=== PATIENT | female | born 1965 | race Caucasian/White ===

== ENCOUNTER 2018-09-19 05:53 | Inpatient (IN) | payer BC ==
[~2018-09-19 05:53] MED LIST: Buffered Lidocaine 1% SYRIN* 1 ML/SYRINGE INTRADERM ONE
[2018-09-19] MEDS ORDERED: Levalbuterol 0.63MG/3ML NEB* UNIT OF USE INH ONE ×2 (06:00→06:16)
[2018-09-19] MEDS ORDERED: Lactated Ringers 1000 ML Bag* 1,000 ML IV SCH (06:00)
[2018-09-19] MEDS ORDERED: Famotidine IV* 10 MG/ML 2 ML (20 mg) IV ONE (06:00)
[2018-09-19] MEDS ORDERED: Heparin VIAL(*) 5000 UNITS/ML VIAL (FIVE THOUSAND) ONE (06:16)
[2018-09-19] MEDS ORDERED: ceFAZolin 1 GM in Dextrose (*) 1 GM/50 ML BAG IVPB ONE (06:17)
[2018-09-19] MEDS ORDERED: Famotidine IV* 10 MG/ML 2 ML (20 mg) ONE (06:17)
[2018-09-19] MEDS ORDERED: ceFAZolin 2 GM PREMIX in ORs 2 GM/50 ML BAG ONE (06:17)
[2018-09-19] MEDS ORDERED: Bupivacaine 0.25% W/EPI* 10 ML SDV ONE ×2 (06:51→07:23)
[2018-09-19] MEDS ORDERED: Ondansetron INJ* 2 MG/ML VIAL ONE (07:07)
[2018-09-19] MEDS ORDERED: fentaNYL* 50 MCG/ML 2 ML VIAL (100 MCG VIAL) ONE ×4 (07:07→11:01)
[2018-09-19] MEDS ORDERED: Propofol* 10 MG/ML 20 ML BTL ONE (07:07)
[2018-09-19] MEDS ORDERED: Lidocaine 2% PF * 5 ML VIAL ONE (07:07)
[2018-09-19] MEDS ORDERED: Rocuronium* 10 MG/ML VIAL ONE (07:07)
[2018-09-19] MEDS ORDERED: Dexamethasone IV* 4 MG/ML 1 ML (4 MG) ONE (07:07)
[2018-09-19] MEDS ORDERED: Midazolam* 1 MG/ML 5 ML VIAL (5 MG) ONE (07:07)
[2018-09-19] MEDS ORDERED: Levalbuterol 0.63MG/3ML NEB* UNIT OF USE INH PRN (08:50)
[2018-09-19] MEDS ORDERED: Naloxone* 0.4 MG/ML 1 ML VIAL IV PRN (08:50)
[2018-09-19] MEDS ORDERED: Ondansetron INJ* 2 MG/ML VIAL IV PRN (08:50)
[2018-09-19] MEDS ORDERED: Ketorolac INJ* 30 MG/ML 1 ML VIAL ONE (09:06)
[2018-09-19] MEDS ORDERED: HYDROmorphone INJ1* 1 MG/ML SYRINGE ONE ×2 (09:27→10:18)
[2018-09-19] MEDS ORDERED: diPHENhydraMINE IV* 50 MG/ML 1 ml VIAL (BENADRYL) SLOW PUSH PRN (09:43)
[2018-09-19] MEDS: fentaNYL* 50 MCG/ML 2 ML VIAL (100 MCG VIAL) IV PRN ×4 (09:59→11:15)
[2018-09-19] MEDS ORDERED: HYDROmorphone INJ1* 1 MG/ML SYRINGE IV SLOW PU PRN (10:20)
[2018-09-19] MEDS ORDERED: Labetalol IV* 5 MG/ML 20 ML VIAL ONE (11:19)
[2018-09-19] MEDS: Heparin VIAL(*) 5000 UNITS/ML VIAL (FIVE THOUSAND) SUBCUT SCH ×2 (13:48→22:17)
[2018-09-19] MEDS: Ondansetron INJ* 2 MG/ML VIAL IV PRN ×2 (15:43→22:16)
[2018-09-19] MEDS ORDERED: Scopolamine 1.5 mg* PATCH ONE (16:46)
[2018-09-19] MEDS: Ketorolac INJ* 30 MG/ML 1 ML VIAL IV PRN ×2 (16:50→23:28)
[2018-09-19] MEDS ORDERED: Scopolamine 1.5 mg* PATCH TRANSDERM SCH (17:00)
[2018-09-19] MEDS ORDERED: hydrALAZINE IV* 20 MG/ML VIAL IV SLOW PU ONE (17:30)
[2018-09-19] MEDS: Mometasone/Formoter 100/5 MDI INH SCH (19:29)
[2018-09-19] MEDS: Lactated Ringers 1000 ML Bag* 1,000 ML IV SCH (20:18)
[2018-09-19] MEDS: HYDROmorphone INJ1* 1 MG/ML SYRINGE IV SLOW PU PRN (20:51)
[2018-09-19] MEDS: Famotidine IV* 10 MG/ML 2 ML (20 mg) IV SLOW PU SCH (20:54)
--- NOTE | 2018-09-20 02:13 | OP ---
DATE OF OPERATION: 09/19/18 - ROOM #353 DATE OF : 67 SURGEON: Ahmet Kennedy MD [employer] ENGINEER: Tammy Doan NP ANESTHESIOLOGIST: Dr. Ware. PRE-OP DIAGNOSES: 1. Clinically severe obesity. 2. Obstructive sleep apnea. 3. Gastroesophageal reflux disease. POST-OP DIAGNOSES: 1. Clinically severe obesity. 2. Obstructive sleep apnea. 3. Gastroesophageal reflux disease. OPERATIVE PROCEDURE: Laparoscopic sleeve gastrectomy. ESTIMATED BLOOD LOSS: Minimal blood loss. FLUIDS: Crystalloid fluid given, see chart. DRAINS: None. SPECIMENS: Portion of stomach. DESCRIPTION OF PROCEDURE: The patient was identified in the preoperative area, she was marked, consent was signed. I discussed the case with her again. She was taken to the operating room and placed on the operating room table in supine position. Preoperative antibiotics were given. Sequential compression devices were placed on bilateral lower extremities. The patient had received subcutaneous heparin. The patient's abdomen was prepped and draped in a standard surgical fashion after general anesthesia was induced and the time-out was performed. Folds of the umbilicus were elevated anteriorly and a Veress needle inserted into the abdominal cavity which was then allowed to insufflate to a pressure of 15 mmHg. The patient tolerated the insufflation well. [place] between the xiphoid and the umbilicus, a 12-mm trocar was inserted just left of midline. Laparoscope was inserted through this and there was no evidence of injury from the trocar insertion or from the Veress needle. This was placed with an Optiview trocar. The Veress needle was removed, and two additional 5-mm ports were placed in the left upper quadrant and one additional 12-mm port in the right upper quadrant. Table was repositioned to a reverse Trendelenburg. Isaiah retractor was inserted through a subxiphoid incision and the liver was retracted anteriorly and to the right. This exposed the gastroesophageal fat pad which was grasped and retracted towards right lower quadrant. Both blunt and sharp dissection were carried out to expose the left deisy. Next, a retrogastric tunnel was made approximately 6 cm proximal to the pylorus along the greater curvature and the vasculature to the greater curvature was taken with a LigaSure right up to the angle of His at the previous dissected area. Posterior attachments were similarly taken until the stomach could be rotated on its axis. We then again measured the site from the pylorus to the dissection area and did additional dissection posteriorly at the antrum. Next, the sleeve stomach was created over a 40-Vietnamese bougie using a 60-mm purple SIMON stapling device with reinforcements, starting on the greater curvature 6 cm from the pylorus and extending it towards the incisura and extending it along hugging the bougie to the proximal stomach. Staple line was intact with no twisting or corkscrewing. Hemostasis excellent. The Isaiah retractor was removed and the liver fell back down on top of the sleeve stomach almost obscuring the whole stomach. The resected portion of the stomach was then placed in an endoscopic retrieval bag and brought out through the right upper quadrant port site. We had to dilate this to remove the specimen in its entirety. This was passed off as specimen. Wound was irrigated at this site and the fascia was reapproximated with 0 Vicryl stitch using a Weck device. The abdomen was allowed to collapse. Trocars were removed under direct vision and all incisions were reapproximated with 4-0 Monocryl subcuticular sutures followed by Steri-Strips and sterile dressing. The patient tolerated the procedure well. [id number]/[facility] #: [id number] [facility]
[2018-09-20] MEDS: HYDROmorphone INJ1* 1 MG/ML SYRINGE IV SLOW PU PRN ×2 (02:24→08:58)
[2018-09-20] MEDS: Lactated Ringers 1000 ML Bag* 1,000 ML IV SCH ×2 (02:27→09:24)
[2018-09-20] MEDS: Ketorolac INJ* 30 MG/ML 1 ML VIAL IV PRN ×3 (05:31→17:30)
[2018-09-20] MEDS: Heparin VIAL(*) 5000 UNITS/ML VIAL (FIVE THOUSAND) SUBCUT SCH ×2 (05:31→14:31)
[2018-09-20] MEDS: Famotidine IV* 10 MG/ML 2 ML (20 mg) IV SLOW PU SCH ×2 (08:34→21:48)
[2018-09-20] MEDS: Mometasone/Formoter 100/5 MDI INH SCH ×2 (08:34→20:20)
--- NOTE | 2018-09-20 10:52 | PN ---
Progress Note - Progress Note Date of Service: 09/20/18 Note: S: POD #1. Some nausea, but only bringing up phlegm. Otherwise doing ok. Pain controlled w/ Dilaudid and Toradol. Ambulating. No flatus. O: Vital Signs - 8 hr 09/20/18 09/20/18 09/20/18 03:42 03:45 07:32 Temperature 99 F 98.5 F Pulse Rate 80 73 Respiratory 18 17 16 Rate Blood Pressure 119/74 124/68 (mmHg) O2 Sat by Pulse 95 95 Oximetry 09/20/18 09/20/18 08:30 08:58 Temperature Pulse Rate Respiratory 16 16 Rate Blood Pressure (mmHg) O2 Sat by Pulse Oximetry Intake and Output Last 24 Hours 09/18/18 09/19/18 09/20/18 09/21/18 06:59 06:59 06:59 06:59 Intake Total 3930 Output Total 1900 750 Balance 2030 -750 Weight 231 lb 3.2 oz Intake: IV Fluids 3930 CEFAZOLIN 3MG 50ML 50 LR 3880 Oral 0 Output: Urine 1900 750 Gen: appears comfortable; NAD Heart: reg Lungs: clear ant Abd: +BS; lap sites ok; soft; mild to moderate incisional tenderness A: s/p lap sleeve gastrectomy, doing well P: UGI pend; likely start watson clears later; resume usual Xarelto
[2018-09-20] MEDS: Ondansetron INJ* 2 MG/ML VIAL IV PRN (11:30)
[2018-09-20] MEDS: D5W 1/2 NS KCl 20 Meq 1000 ML* 1,000 ML IV SCH (17:35)
[2018-09-20] MEDS ORDERED: Rivaroxaban TAB(*) 20 MG TAB PO SCH (18:00)
[2018-09-21] MEDS: Ketorolac INJ* 30 MG/ML 1 ML VIAL IV PRN ×2 (01:28→07:48)
[2018-09-21] MEDS: D5W 1/2 NS KCl 20 Meq 1000 ML* 1,000 ML IV SCH (01:31)
[2018-09-21 07:40] VITALS: BP 163/99
[2018-09-21] MEDS: Famotidine IV* 10 MG/ML 2 ML (20 mg) IV SLOW PU SCH (07:49)
[2018-09-21] MEDS: Mometasone/Formoter 100/5 MDI INH SCH (07:51)
[2018-09-21] MEDS ORDERED: HYDROcodone/ACET. 7.5/325 LIQ* 15 ML UDC PO PRN (08:57)
--- NOTE | 2018-09-21 12:23 | DS ---
CC: Dr. María Elena Maurer; [facility] * DISCHARGE SUMMARY: DATE OF ADMISSION: 09/19/18 DATE OF DISCHARGE: 09/21/18 ATTENDING SURGEON: Dr. Ahmet Kennedy * (DICTATED BY DENISSE MEDEIROS) HOSPITAL COURSE: Please refer to admission history and physical and operative note for details. The patient was taken to the operating room on 09/19/18 and underwent laparoscopic sleeve gastrectomy with Dr. Kennedy. Surgery itself was unremarkable and she has been able to advance to adequate bariatric clear liquids as of the morning of postoperative day 2. Her pain has been well controlled. Physical exam on the morning of discharge; temperature 98.3, blood pressure is ranging from 119 to 163/74 to 99, pulse 60, respirations 16, room air saturation 96%. The patient was seen and examined with Dr. Kennedy. Heart: Regular rate and rhythm. Lungs: Clear to auscultation. Abdomen: Laparoscopic incision sites clean and dry. Outer dressings were removed. Soft with incisional tenderness primarily at the right upper quadrant incision. Lower abdomen is nontender. IMPRESSION: Status post laparoscopic sleeve gastrectomy. PLAN: The patient is discharged to home today in good condition. She resumed her usual Xarelto as of last evening and will continue per her usual regimen as well as her other usual medications. She has an appointment at [facility] next week with Dr. Kennedy. We reviewed instructions regarding diet, wound care and activity. DENISSE MEDEIROS [id number]/[facility] #: [id number] [facility]
[2018-09-22] MEDS ORDERED: Scopolamine PATCH Remove* 1 NOTE MISC PATCH OFF SCH (17:00)
== END 2018-09-21 10:13 | disposition home or self-care (01) | DRG 403 ==
LOC: AA 05:53 → SSU 09:43
PROVIDERS: ADMIT Surgery; ATTEND Surgery
PROC: 0DB64Z3 Excision of Stomach, Percutaneous Endoscopic Approach, Vertical (ICD-10-PCS; principal; 2018-09-19 07:30)
DX: E66.01 Morbid (severe) obesity due to excess calories (principal); Z68.36 Body mass index [BMI] 36.0-36.9, adult; K21.9 Gastro-esophageal reflux disease without esophagitis; J45.909 Unspecified asthma, uncomplicated; G89.29 Other chronic pain; M54.5 Low back pain; E74.39 Other disorders of intestinal carbohydrate absorption; G47.33 Obstructive sleep apnea (adult) (pediatric); Z86.718 Personal history of other venous thrombosis and embolism; Z90.49 Acquired absence of other specified parts of digestive tract; Z98.51 Tubal ligation status; Z87.891 Personal history of nicotine dependence; Z72.89 Other problems related to lifestyle; R11.0 Nausea
CPT/HCPCS: 43775; 74246; 88307; 94640; A9270-GY; J0360; J0690; J1100; J1170; J1644; J1885; J2250; J2405; J2704; J3010

== ENCOUNTER 2018-12-03 09:14 | Emergency (ER) | payer BC ==
[2018-12-03 09:22] VITALS: BP 122/84
--- NOTE | 2018-12-03 09:30 | UC ---
Cardiac HPI - HPI Summary HPI Summary: 53-year-old female presents with complaints of left sided chest wall pain after sustaining a fall last night. Patient states she tripped on a step falling onto a carpeted floor landing on her left side injuring her left breast and chest wall. States did not hit her head or lose consciousness. Reports lateral left chest wall pain with palpation, deep breath, cough. States she is concerned about a possible fractured rib. Patient is on Xarelto. Denies bruising, shortness of breath, hemoptysis, palpitations, diaphoresis, weakness, dizziness, abdominal pain, nausea, or vomiting. - History of Current Complaint Chief Complaint: UCGeneralIllness Stated Complaint: RIB INJURY Time Seen by Provider: 12/03/18 09:24 Hx Obtained From: Patient Hx Last Menstrual Period: 2 weeks ago Pain Intensity: 7 - Allergy/Home Medications Allergies/Adverse Reactions: Allergies Allergy/AdvReac Type Severity Reaction Status Date / Time No Known Drug Allergies Allergy Edema Verified 12/03/18 09:22 ENVIRONMENTAL Allergy Congestion Uncoded 12/03/18 09:22 PMH/Surg Hx/FS Hx/Imm Hx Cardiovascular History: Deep Vein Thrombosis, Other - Mesenteric vein thrombosis Respiratory History: COPD GI/ History: Gastroesophageal Reflux - Surgical History Surgical History: Yes Surgery Procedure, Year, and Place: left ACL - 1997, [facility]. tubal- 2000, [facility]. cholecystectomy - 2002, [facility]. left knee [facility] - 2011. left knee meniscus repair 2012 - Family History Known Family History: Positive: Non-Contributory - Social History Occupation: Employed Full-time Lives: With Family Alcohol Use: Occasionally Alcohol Amount: 5-6 PER WEEK Substance Use Type: None Smoking Status (MU): Current Some Day Smoker Type: Cigarettes Amount Used/How Often: 1pp month Length of Time of Smoking/Using Tobacco: 30 years Have You Smoked in the Last Year: Yes Household Exposure Type: Cigarettes - Immunization History Most Recent Influenza Vaccination: 2013 Most Recent Tetanus Shot: remote Most Recent Pneumonia Vaccination: never Review of Systems All Other Systems Reviewed And Are Negative: Yes Constitutional: Negative: Fever, Chills Skin: Negative: Bruising Respiratory: Positive: Other - Chest wall pain. Negative: Shortness Of Breath, Cough Cardiovascular: Positive: Negative Gastrointestinal: Negative: Abdominal Pain, Vomiting, Nausea Genitourinary: Positive: Negative Musculoskeletal: Positive: Negative Neurological: Positive: Negative Is Patient Immunocompromised?: No Physical Exam - Summary Physical Exam Summary: GENERAL APPEARANCE: Well developed, obese, alert and cooperative adult female who appears to be in no acute distress. HEAD: Atraumatic. Normocephalic. NECK: Neck supple, non-tender. CARDIAC: Normal S1 and S2. No S3, S4 or murmurs. Rhythm is regular. There is no peripheral edema, cyanosis or pallor. Extremities are warm and well perfused. Capillary refill is less than 2 seconds. Peripheral pulses intact. LUNGS: Clear to auscultation without rales, rhonchi, wheezing or diminished breath sounds. BREAST/CHEST: Left breast soft and non-tender without ecchymosis. Tenderness to the mid lateral chest wall with palpation without ecchymosis or crepitus. ABDOMEN: Positive bowel sounds. Soft, nondistended, nontender. No guarding or rebound. No masses or hepatosplenomegally. MUSKULOSKELETAL: ROM intact to all extremities. No joint erythema or tenderness. Normal muscular development. Normal gait. BACK: Examination of the spine no spinal deformity or tenderness, decreased range of motion or muscular spasm. EXTREMITIES: No significant deformity or joint abnormality. No edema. SKIN: Skin normal color, texture and turgor with no lesions or eruptions. Triage Information Reviewed: Yes Vital Signs: Initial Vital Signs Temp 98.4 F 12/03/18 09:18 Pulse 66 12/03/18 09:18 Resp 16 12/03/18 09:18 BP 122/84 12/03/18 09:18 Pulse Ox 98 12/03/18 09:18 Vital Signs Reviewed: Yes Diagnostics - Radiology No standard instances Radiology Interpretation Completed By: Radiologist - Order Information: RIBS LT UNI W/PA CH MIN 3 VWS Accession Number: [id number] CPT: 23653 HISTORY: chest pain s/p fall COMPARISONS: None relevant available at the time of dictation. VIEWS: 8, Frontal view of the chest with frontal and oblique views of the left hemithorax FINDINGS: There is no displaced rib fracture or pneumothorax. The visualized lungs are clear. IMPRESSION: NO DISPLACED RIB FRACTURE OR PNEUMOTHORAX. - Assessment/Plan Course Of Treatment: 53-year-old female presents with complaints of left sided chest wall pain after sustaining a fall last night. Patient states she tripped on a step falling onto a carpeted floor landing on her left side injuring her left breast and chest wall. States did not hit her head or lose consciousness. Reports lateral left chest wall pain with palpation, deep breath, cough. States she is concerned about a possible fractured rib. Patient is on Xarelto. Denies bruising, shortness of breath, hemoptysis, palpitations, diaphoresis, weakness, dizziness, abdominal pain, nausea, or vomiting. Afebrile. Vital signs stable. On exam the patient was noted to have a soft and non-tender left breast without ecchymosis, tenderness to the mid lateral chest wall with palpation without ecchymosis or crepitus, and otherwise unremarkable exam. Patient was given acetaminophen 975 mg PO for pain. Chest x-ray and left rib films showed no acute cardiopulmonary pathology or fracture. Recommending conservative treatment for a chest wall contusion. Reviewed deep breathing exercises with the patient and I'm recommending that she performed every 2 hours while awake to help prevent pneumonia. She is to follow-up with her primary care provider in 3-5 days if symptoms are not improving. Anticipatory guidance and warning symptoms are reviewed with the patient. Verbalizes understanding and agrees with plan of care. - Differential Diagnoses - Chest Pain Differential Diagnosis/HQI/PQRI: Chest Wall, Other: - chest wall contussion, rib fracture, pulmonary contusion, pneumothorax - Clinical Impression Provider Diagnosis: Chest wall contusion Discharge - Sign-Out/Discharge Documenting (check all that apply): Patient Departure All imaging exams completed and their final reports reviewed: Yes - Discharge Plan Condition: Stable Disposition: HOME Patient Education Materials: Chest Wall Pain (ED) Referrals: María Elena Maurer MD [Primary Care Provider] - 3 Days Additional Instructions: The x-ray of your ribs and chest that was performed in the clinic today did not show any evidence of any rib fractures or other injury. I suspect that you have a contusion of the chest wall. Take acetaminophen (Tylenol) according to directions as needed for pain. It is important that you do the deep breathing exercises that were discussed with you every couple of hours while awake to help prevent complications such as pneumonia. Follow-up with your primary care provider in 3-5 days especially if symptoms are not improving. Seek immediate medical attention in the emergency room if you develop a fever greater than 100.5 F, have worsening chest pain that is not managed with the pain medication, difficulty breathing, or any worsening of symptoms. - Billing Disposition and Condition Condition: STABLE Disposition: Home
[2018-12-03] MEDS ORDERED: Acetaminophen TAB* 325 MG PO ONE (09:45)
== END 2018-12-03 10:31 | disposition home or self-care (01) ==
LOC: UCEAST 09:14
DX: S20.212A Contusion of left front wall of thorax, initial encounter (principal); W01.0XXA Fall on same level from slipping, tripping and stumbling without subsequent striking against object, initial encounter; Y92.9 Unspecified place or not applicable; Z86.718 Personal history of other venous thrombosis and embolism; Z79.01 Long term (current) use of anticoagulants; J44.9 Chronic obstructive pulmonary disease, unspecified; Z72.0 Tobacco use
CPT/HCPCS: 99212; A9270-GY; G0463